=== PATIENT | male | born 1995 | race Caucasian/White ===

== ENCOUNTER 2020-08-07 12:47 | Emergency (ER) | payer OTHER ==
[~2020-08-07] VITALS: Ht 172.7 cm; Wt 97.5 kg
[2020-08-07] MEDS ORDERED: NEURONTIN800 MG PO (13:37)
[2020-08-07] MEDS ORDERED: ZYPREXA ZYDIS15 MG PO (13:37)
[2020-08-07] MEDS ORDERED: BUPROPION XL300 MG PO (13:37)
[2020-08-07] MEDS ORDERED: BUPROPION XL150 MG PO (13:38)
[2020-08-07] MEDS ORDERED: GEODON60 MG PO (13:39)
[2020-08-07] MEDS ORDERED: SEROQUEL100 MG PO (13:39)
[2020-08-07] MEDS ORDERED: CYMBALTA20 MG PO (13:40)
[2020-08-07] MEDS ORDERED: KLONOPIN1 MG PO (13:41)
--- OUTSIDE RECORDS SUMMARY | 2020-08-07 14:30 | XMS ---
PreManage Notification: NORAH LIMA Security Acid Correction Hand Events No recent Security Events currently on file CRITERIA MET - [facility] CARE PROVIDERS There are no care providers on record at this time. Michael has no Care Guidelines for this patient. Buddy VISIT COUNT (12 MO.) 1 JACK Crespo TOTAL 1 NOTE: Visits indicate total known visits. ED/C VISIT TRACKING (12 MO.) 08/07/2020 12:48 [facility] [place] TYPE: Emergency COMPLAINT: - PSYCH EVAL INPATIENT VISIT TRACKING (12 MO.) No inpatient visits to display in this time frame [id number]
== END 2020-08-07 14:08 | disposition home or self-care (01) ==
LOC: ED 12:47 → EDBD 12:48 → ED 14:08
DX: T43.291A Poisoning by other antidepressants, accidental (unintentional), initial encounter (principal); F43.10 Post-traumatic stress disorder, unspecified; F41.9 Anxiety disorder, unspecified; F32.9 Major depressive disorder, single episode, unspecified; F17.200 Nicotine dependence, unspecified, uncomplicated; Z79.899 Other long term (current) drug therapy
CPT/HCPCS: 99283

== ENCOUNTER 2021-05-16 16:51 | Emergency (ER) | payer OTHER ==
[~2021-05-16] VITALS: Ht 172.7 cm; Wt 108.9 kg
[~2021-05-16 16:51] MED LIST: BUPROPION XL150 MG PO; BUPROPION XL300 MG PO; CYMBALTA20 MG PO; GEODON60 MG PO; KLONOPIN1 MG PO; NEURONTIN800 MG PO; SEROQUEL100 MG PO; ZYPREXA ZYDIS15 MG PO
--- OUTSIDE RECORDS SUMMARY | 2021-05-16 16:54 | XMS ---
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 ECatrachita VISIT COUNT (12 MO.) 2 JACK Crespo TOTAL 2 NOTE: Visits indicate total known visits. ED/UCC VISIT TRACKING (12 MO.) 05/16/2021 16:51 [facility] [place] TYPE: Emergency COMPLAINT: - BACK PAIN 08/07/2020 12:48 [facility] [place] TYPE: Emergency COMPLAINT: - PSYCH EVAL DIAGNOSES: - Poisoning by other antidepressants, accidental (unintentional), initial encounter - Other snf (current) drug therapy - Nicotine dependence, unspecified, uncomplicated - Post-traumatic stress disorder, unspecified - Major depressive disorder, single episode, unspecified - Anxiety disorder, unspecified INPATIENT VISIT TRACKING (12 MO.) No inpatient visits to display in this time frame [email or web address]
[2021-05-16] MEDS ORDERED: DEPAKOTE500 MG PO (20:43)
[2021-05-16] MEDS ORDERED: GEODON80 MG NG (20:43)
[2021-05-16] MEDS ORDERED: ASPERCREME1 EACH TOP (22:04)
[2021-05-16] MEDS ORDERED: MAPAP500 MG PO (22:04)
[2021-05-16] MEDS ORDERED: VALIUM5 MG PO (22:04)
[2021-05-16] MEDS ORDERED: HYDROCODON-ACE1 EA10 PO (22:05)
== END 2021-05-16 22:15 | disposition home or self-care (01) ==
LOC: ED 16:51
DX: M54.41 Lumbago with sciatica, right side (principal); F43.10 Post-traumatic stress disorder, unspecified; F17.200 Nicotine dependence, unspecified, uncomplicated; Z79.899 Other long term (current) drug therapy
CPT/HCPCS: 99283; A9270

== ENCOUNTER 2021-10-03 17:46 | Emergency (ER) | payer OTHER ==
[~2021-10-03] VITALS: Ht 172.7 cm; Wt 122.5 kg
[~2021-10-03 17:46] MED LIST changes: +ASPERCREME1 EACH TOP; +DEPAKOTE500 MG PO; +GEODON80 MG NG; +HYDROCODON-ACE1 EA10 PO; +MAPAP500 MG PO; +VALIUM5 MG PO
--- OUTSIDE RECORDS SUMMARY | 2021-10-03 17:50 | XMS ---
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 ED/UCC VISIT TRACKING (12 MO.) 10/03/2021 17:47 [facility] [place] TYPE: Emergency COMPLAINT: - LT KNEE SWELLING 05/16/2021 16:51 JACK [facility] [place] TYPE: Emergency COMPLAINT: - BACK PAIN/ NON INJ DIAGNOSES: - Lumbago with sciatica, right side - Other mcc (current) drug therapy - Post-traumatic stress disorder, unspecified - Nicotine dependence, unspecified, uncomplicated INPATIENT VISIT TRACKING (12 MO.) No inpatient visits to display in this time frame [id number]
[2021-10-03] MEDS ORDERED: DOXYCYCLINE HY100 MG PO (20:33)
== END 2021-10-03 23:33 | disposition home or self-care (01) ==
LOC: ED 17:46
DX: L03.116 Cellulitis of left lower limb (principal); F43.10 Post-traumatic stress disorder, unspecified; F17.200 Nicotine dependence, unspecified, uncomplicated; Z79.899 Other long term (current) drug therapy
CPT/HCPCS: 20610; 73560; 80053; 83605; 85025; 90714; 93971; 99284-25; J1885; J3370; J7060

== ENCOUNTER 2022-12-08 13:48 | Emergency (ER) | payer SELFPAY ==
[~2022-12-08] VITALS: Ht 172.7 cm; Wt 104.3 kg
[~2022-12-08 13:48] MED LIST changes: +DOXYCYCLINE HY100 MG PO
--- OUTSIDE RECORDS SUMMARY | 2022-12-08 13:52 | XMS ---
PreManage Notification: NORAH VALENTINE Security Unclaimed Property Manager Events No recent Security Events currently on file CRITERIA MET - PDMP CARE PROVIDERS FREYA WATSON [facility] 08/08/2020-Current PHONE: Unknown Care Guidelines exist for the following facilities: [facility] ( 09/16/2019 ) Buddy VISIT COUNT (12 MO.) 1 JACK Crespo TOTAL 1 NOTE: Visits indicate total known visits. ED/UCC VISIT TRACKING (12 MO.) 12/08/2022 13:[address] [facility] [place] TYPE: Emergency COMPLAINT: - HEAD HURTS, BLURRY VISION INPATIENT VISIT TRACKING (12 MO.) No inpatient visits to display in this time frame [id number]
[2022-12-08] MEDS ORDERED: BUPRENORPHINE-1 EACH SL (14:03)
== END 2022-12-08 15:40 | disposition home or self-care (01) ==
LOC: ED 13:48
DX: R51.9 Headache, unspecified (principal); F43.10 Post-traumatic stress disorder, unspecified; F17.200 Nicotine dependence, unspecified, uncomplicated; Z79.899 Other long term (current) drug therapy
CPT/HCPCS: 70450; 96372; 99284-25; A9270; J1885

== ENCOUNTER 2024-06-16 21:42 | Emergency (ER) | payer OTHER ==
[~2024-06-16] VITALS: Ht 172.7 cm; Wt 81.8 kg
[~2024-06-16 21:42] MED LIST changes: +BUPRENORPHINE-1 EACH SL; +ONDANSETRON ODT8 MG PO; +TRAZODONE HCL100 MG PO
--- OUTSIDE RECORDS SUMMARY | 2024-06-16 21:48 | XMS ---
PreManage Notification: NORAH VALENTINE Security Land Economist Events No recent Security Events currently on file CRITERIA MET - [facility] - 2 Visits in 30 Days CARE PROVIDERS FREYA WATSON Family [facility] 08/08/2020-Current PHONE: Unknown -, [facility] Dentist: Vegetable [facility] PHONE: [phone] -Charlie- Dentist: Vegetable [facility] PHONE: [phone] [facility]: [facility] Current \F\ [facility] PHONE: [phone] Care Guidelines exist for the following facilities: [facility] ( 09/16/2019 ) Buddy VISIT COUNT (12 MO.) 4 [facility] TOTAL 4 NOTE: Visits indicate total known visits. ED/UCC VISIT TRACKING (12 MO.) 06/16/2024 21:[address] [facility] [place] TYPE: Emergency COMPLAINT: - SIDE PAIN 05/25/2024 16:[address] 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 [facility] [place] TYPE: Emergency COMPLAINT: - MEDICATION REFILL DIAGNOSES: - Anxiety disorder, unspecified - Encounter for issue of repeat prescription - Nicotine dependence, unspecified, uncomplicated 10/15/2023 10:49 [facility] [place] [facility] [place] TYPE: Emergency COMPLAINT: - RECTAL ISSUE DIAGNOSES: - Constipation, unspecified - Nicotine dependence, unspecified, uncomplicated INPATIENT VISIT TRACKING (12 MO.) No inpatient visits to display in this time frame [id number]
[2024-06-16 23:06] LABS: BILIRUBIN, URINE POSITIVE (negative); BLOOD/HGB, URINE NEGATIVE (Negative); KETONE, URINE SMALL (Negative); LEUK ESTERASE, URINE NEGATIVE (negative); NITRITE, URINE NEGATIVE (negative)
[2024-06-16] MEDS ORDERED: LACTATED RINGER'S 1,000 ML IV ONE (23:15)
[2024-06-16] MEDS ORDERED: ondansetron HCL 4 MG/2 ML VIAL IV ONE (23:15)
[2024-06-16] MEDS ORDERED: MORPHINE SULFATE 4 MG/ML VIAL IV ONE (23:15)
[2024-06-17 00:13] LABS: ALBUMIN 3.8 g/dL (3.4-5.0); ALBUMIN/GLOBULIN RATIO 1.36 (1.1-2.4); ANION GAP 5.1 (7-21); BILIRUBIN, TOTAL 0.5 ng/dL (0.2-1.0); BUN/CREATININE RATIO 6.97 (6.0-28.6); CALCIUM 8.9 mg/dL (8.5-10.1); CREATININE, SERUM 0.86 mg/dL (0.70-1.30); MAGNESIUM 2.1 mg/dL (1.8-2.4); POTASSIUM 3.1 mmol/L (3.5-5.1); PROTEIN, TOTAL 6.6 g/dL (6.4-8.2)
[2024-06-17 00:24] LABS: BASOPHILS 0.2 % (0-2); HEMOGLOBIN 17.2 g/dL (12.0-18.0); LYMPHOCYTES 7.1 % (24-44); MCH 30.1 (27-36); MCHC 34.4 g/dl (30-36); MCV 87.5 fl (81-99); MONOCYTES 5.4 % (0-12); NEUTROPHILS 87.3 % (39-80); PLATELET COUNT 231 K/uL (140-440); RBC 5.71 M/ul (4.3-5.7); RDW 13.5 (10.5-15.0)
[2024-06-17] MEDS ORDERED: TRAMADOL HCL50 MG PO (00:41)
[2024-06-17] MEDS ORDERED: ONDANSETRON ODT8 MG PO (00:41)
[2024-06-17] MEDS ORDERED: ONDANSETRON 4 MG HOME.PACK SL ONE (00:45)
[2024-06-17] MEDS ORDERED: TRAMADOL HCL 50 MG HOME.PACK PO ONE (01:00)
[2024-06-17 01:05] VITALS: BP 116/70
== END 2024-06-17 01:03 | disposition home or self-care (01) ==
LOC: ED 21:42
PROVIDERS: Family Medicine
DX: K52.9 Noninfective gastroenteritis and colitis, unspecified (principal); F31.9 Bipolar disorder, unspecified; F17.200 Nicotine dependence, unspecified, uncomplicated; Z79.899 Other long term (current) drug therapy
CPT/HCPCS: 36415; 74176; 80053; 81003; 83690; 83735; 85025; 96374; 96375; 99284-25; A9270; J2270; J2405; J7121

== ENCOUNTER 2024-06-19 21:03 | Emergency (ER) | payer OTHER ==
[~2024-06-19] VITALS: Ht 172.7 cm; Wt 87.0 kg
[~2024-06-19 21:03] MED LIST changes: +TRAMADOL HCL50 MG PO
--- OUTSIDE RECORDS SUMMARY | 2024-06-19 21:10 | XMS ---
PreManage Notification: NORAH VALENTINE Security Master Lay Out Specialist Events No recent Security Events currently on file CRITERIA MET - [facility] - 2 Visits in 30 Days CARE PROVIDERS FREYA WATSON Family Medicine 08/08/2020-Current PHONE: Unknown -, [facility] Dentist: Director Of Valuation [facility] PHONE: [phone] -Charlie- Dentist: Director Of Valuation [facility] PHONE: [phone] [facility]: [facility] Current \F\ [facility] PHONE: [phone] Care Guidelines exist for the following facilities: [facility] ( 09/16/2019 ) Buddy VISIT COUNT (12 MO.) 5 [facility] TOTAL 5 NOTE: Visits indicate total known visits. ED/UCC VISIT TRACKING (12 MO.) 06/19/2024 21:[address] [facility] [place] TYPE: Emergency COMPLAINT: - EXTREMITY PAIN 06/16/2024 21:42 [facility] [place] TYPE: Emergency COMPLAINT: - SIDE PAIN DIAGNOSES: - Bipolar disorder, unspecified - Nicotine dependence, unspecified, uncomplicated - Noninfective gastroenteritis and colitis, unspecified - Other superintendent terminal (current) drug therapy - Unspecified abdominal pain 05/25/2024 16:19 [facility] [place] TYPE: Emergency COMPLAINT: - ABDOMINAL PAIN DIAGNOSES: - Nausea with vomiting, unspecified - Nicotine dependence, unspecified, uncomplicated - Other jail (current) drug therapy - Unspecified abdominal pain 01/24/2024 15:28 [facility] [place] TYPE: Emergency COMPLAINT: - MEDICATION REFILL DIAGNOSES: - Anxiety disorder, unspecified - Encounter for issue of repeat prescription - Nicotine dependence, unspecified, uncomplicated 10/15/2023 10:[address] [facility] [place] TYPE: Emergency COMPLAINT: - RECTAL ISSUE DIAGNOSES: - Constipation, unspecified - Nicotine dependence, unspecified, uncomplicated INPATIENT VISIT TRACKING (12 MO.) No inpatient visits to display in this time frame [id number]
[2024-06-19] MEDS ORDERED: KETOROLAC TROMETHAMINE 30 MG/ML VIAL IV ONE (23:15)
[2024-06-19] MEDS ORDERED: ondansetron HCL 4 MG/2 ML VIAL IV ONE (23:15)
[2024-06-19] MEDS ORDERED: LACTATED RINGER'S 1,000 ML IV ONE (23:15)
[2024-06-19 23:18] LABS: ALBUMIN 4.3 g/dL (3.4-5.0); ALBUMIN/GLOBULIN RATIO 1.23 (1.1-2.4); ANION GAP 13.2 (7-21); BILIRUBIN, TOTAL 0.5 ng/dL (0.2-1.0); BUN/CREATININE RATIO 4.08 (6.0-28.6); CALCIUM 9.6 mg/dL (8.5-10.1); CREATININE, SERUM 0.98 mg/dL (0.70-1.30); POTASSIUM 3.2 mmol/L (3.5-5.1); PROTEIN, TOTAL 7.8 g/dL (6.4-8.2)
[2024-06-20 00:19] LABS: BASOPHILS 0.3 % (0-2); EOSINOPHILS 0.1 % (0-6); HEMATOCRIT 54.6 % (35.0-50.0); HEMOGLOBIN 18.9 g/dL (12.0-18.0); LYMPHOCYTES 19.6 % (24-44); MCH 30.4 (27-36); MCHC 34.6 g/dl (30-36); MCV 87.8 fl (81-99); MONOCYTES 5.8 % (0-12); NEUTROPHILS 74.2 % (39-80); PLATELET COUNT 277 K/uL (140-440); RBC 6.22 M/ul (4.3-5.7); RDW 13.6 (10.5-15.0)
[2024-06-20 02:49] LABS: BILIRUBIN, URINE NEGATIVE (negative); BLOOD/HGB, URINE NEGATIVE (Negative); KETONE, URINE NEGATIVE (Negative); LEUK ESTERASE, URINE NEGATIVE (negative); NITRITE, URINE NEGATIVE (negative)
[2024-06-20 03:09] LABS: AMPHETAMINES, URINE NEGATIVE (NEGATIVE); BARBITURATES, URINE NEGATIVE (NEGATIVE); BENZODIAZEPINE, URINE POSITIVE (NEGATIVE); BUPRENORPHINE, URINE NEGATIVE (NEGATIVE); CANNABINOID, URINE NEGATIVE (NEGATIVE); COCAINE, URINE NEGATIVE (NEGATIVE); ECSTASY, URINE NEGATIVE (NEGATIVE); FENTANYL, URINE NEGATIVE (NEGATIVE); METHADONE, URINE NEGATIVE (NEGATIVE); OPIATES, URINE NEGATIVE (NEGATIVE); OXYCODONE, URINE NEGATIVE (NEGATIVE); PHENCYCLIDINE, URINE NEGATIVE (NEGATIVE)
[2024-06-20 04:03] VITALS: BP 118/87
== END 2024-06-20 04:04 | disposition home or self-care (01) ==
LOC: ED 21:03
PROVIDERS: Internal Medicine
DX: R10.9 Unspecified abdominal pain (principal); F17.200 Nicotine dependence, unspecified, uncomplicated; Z79.899 Other long term (current) drug therapy
CPT/HCPCS: 36415; 80053; 80307; 81003; 83690; 85025; 96374; 96375; 99284-25; J1885; J2405; J7121

== ENCOUNTER 2024-09-30 17:44 | Emergency (ER) | payer OTHER ==
[~2024-09-30] VITALS: Ht 172.7 cm; Wt 78.1 kg
[2024-09-30] MEDS ORDERED: LACTATED RINGER'S 1,000 ML IV ONE (19:45)
[2024-09-30] MEDS ORDERED: KETOROLAC TROMETHAMINE 30 MG/ML VIAL IV ONE (19:45)
[2024-09-30 20:15] LABS: BASOPHILS 0.7 % (0-2); HEMATOCRIT 45.4 % (35.0-50.0); LYMPHOCYTES 30.9 % (24-44); MCH 31.5 (27-36); MCHC 35.3 g/dl (30-36); MCV 89.2 fl (81-99); MONOCYTES 6.5 % (0-12); NEUTROPHILS 59.9 % (39-80); PLATELET COUNT 255 K/uL (140-440); RBC 5.09 M/ul (4.3-5.7); RDW 13.7 (10.5-15.0)
[2024-09-30] MEDS ORDERED: ACETAMINOPHEN 500 MG TAB PO ONE (21:15)
[2024-09-30 21:23] LABS: ERYTHROCYTE SEDIMENTATION RATE 4
[2024-09-30 21:39] LABS: ALBUMIN 3.4 g/dL (3.4-5.0); ALBUMIN/GLOBULIN RATIO 1.21 (1.1-2.4); ANION GAP 11.4 (7-21); BILIRUBIN, TOTAL 0.3 ng/dL (0.2-1.0); BUN/CREATININE RATIO 17.64 (6.0-28.6); CALCIUM 8.9 mg/dL (8.5-10.1); CREATININE, SERUM 0.85 mg/dL (0.70-1.30); MAGNESIUM 2.2 mg/dL (1.8-2.4); POTASSIUM 4.4 mmol/L (3.5-5.1); PROTEIN, TOTAL 6.2 g/dL (6.4-8.2)
[2024-09-30 22:05] LABS: BILIRUBIN, URINE NEGATIVE (negative); BLOOD/HGB, URINE NEGATIVE (Negative); KETONE, URINE NEGATIVE (Negative); LEUK ESTERASE, URINE NEGATIVE (negative); NITRITE, URINE NEGATIVE (negative); PH, URINE 6.5 (5-7)
[2024-09-30 22:20] LABS: AMPHETAMINES, URINE NEGATIVE (NEGATIVE); BARBITURATES, URINE NEGATIVE (NEGATIVE); BENZODIAZEPINE, URINE NEGATIVE (NEGATIVE); BUPRENORPHINE, URINE POSITIVE (NEGATIVE); CANNABINOID, URINE NEGATIVE (NEGATIVE); COCAINE, URINE NEGATIVE (NEGATIVE); ECSTASY, URINE NEGATIVE (NEGATIVE); FENTANYL, URINE NEGATIVE (NEGATIVE); METHADONE, URINE NEGATIVE (NEGATIVE); OPIATES, URINE NEGATIVE (NEGATIVE); OXYCODONE, URINE NEGATIVE (NEGATIVE); PHENCYCLIDINE, URINE NEGATIVE (NEGATIVE)
[2024-09-30] MEDS ORDERED: AMOX TR-K CLV1 EAC1 PO (22:23)
[2024-09-30 22:30] VITALS: BP 112/88
[2024-09-30] MEDS ORDERED: AMOXICILLIN/CLAVULANATE K 875 MG TAB PO ONE (22:30)
== END 2024-09-30 22:30 | disposition home or self-care (01) ==
LOC: ED 17:44
PROVIDERS: Internal Medicine
DX: L89.892 Pressure ulcer of other site, stage 2 (principal); F17.200 Nicotine dependence, unspecified, uncomplicated; Z79.899 Other long term (current) drug therapy
CPT/HCPCS: 36415; 73630; 80053; 80307; 81003; 83036; 83735; 84484; 84550; 85025; 85379; 85651; 86140; 96374; 99283-25; A9270; J1885; J7121